=== PATIENT | male | born 1985 | race Caucasian/White ===

== ENCOUNTER 2021-12-26 11:04 | Emergency (ER) | payer OTHER ==
[~2021-12-26] VITALS: Ht 188 cm; Wt 90.7 kg
[2021-12-26 11:29] VITALS: BP 144/77
--- NOTE | 2021-12-26 11:35 | NUR ---
BIB SELF C/O FALLING YESTERDAY WHILE DOING A STUNT, AND NOTICING R ELBOW PAIN/SWELLING TODAY. AAOX4, BREATHING EVEN AND UNLABORED.
[2021-12-26] MEDS ORDERED: LIDOCAINE 1% INJ 50 ML MDV IJ ONE (12:11)
--- NOTE | 2021-12-26 12:50 | NUR ---
DRAINAGE DONE BY .
[2021-12-26] MEDS ORDERED: NAPR-1164 PO (13:01)
--- NOTE | 2021-12-26 13:17 | NUR ---
Patient discharged to home in stable condition. Written and verbal after care instructions given. Patient verbalizes understanding of instruction.
== END 2021-12-26 13:17 | disposition home or self-care (01) ==
LOC: ER 11:05
DX: S20.211A Contusion of right front wall of thorax, initial encounter (principal); M70.21 Olecranon bursitis, right elbow; W22.8XXA Striking against or struck by other objects, initial encounter; Y93.89 Activity, other specified; Y92.89 Other specified places as the place of occurrence of the external cause; Y99.8 Other external cause status
CPT/HCPCS: 20605; 71100; 73080; 99284; A6403; J3490

== ENCOUNTER 2022-01-30 08:17 | Emergency (ER) | payer OTHER ==
[~2022-01-30] VITALS: Ht 188 cm; Wt 88.5 kg
[~2022-01-30 08:17] MED LIST: NAPR-1164 PO
[2022-01-30 08:40] VITALS: BP 119/67
--- NOTE | 2022-01-30 08:42 | NUR ---
SEEN AND EXAMINED BY .
--- NOTE | 2022-01-30 08:49 | NUR ---
TO ER BED 4. BIBS L HEEL/FOOT PAIN S/P PERFORMING STUNT AT AROUND 11PM LAST NIGHT.
--- NOTE | 2022-01-30 08:58 | NUR ---
EMBEDDED SOFTWARE MANAGER AT BEDSIDE FOR XRAY.
--- NOTE | 2022-01-30 09:47 | NUR ---
Patient discharged to home in stable condition. Written and verbal after care instructions given. Patient verbalizes understanding of instruction.
== END 2022-01-30 09:48 | disposition home or self-care (01) ==
LOC: ER 08:20
DX: S90.32XA Contusion of left foot, initial encounter (principal); Z79.1 Long term (current) use of non-steroidal anti-inflammatories (NSAID); W22.8XXA Striking against or struck by other objects, initial encounter; Y93.89 Activity, other specified; Y92.89 Other specified places as the place of occurrence of the external cause; Y99.0 Civilian activity done for income or pay
CPT/HCPCS: 73630-TC; 73650-TC

== ENCOUNTER 2022-08-24 20:25 | Emergency (ER) | payer OTHER ==
[~2022-08-24] VITALS: Ht 188 cm; Wt 86.2 kg
--- NOTE | 2022-08-24 20:45 | NUR ---
BIB FAMILY FROM HOME C/O FEVER 101.F. S/P DEVIATED SEPTUM SURGERY 08/24/22 TOOK HYDROCODONE 7.5-325MG AT 1900. PT A/OX4. RESPIRATIONS EVEN AND NONLABORED. AMB WITH STEADY GAIT. SAFETY MEASURES IN PLACE. VSS
[2022-08-24] MEDS ORDERED: ACETAMINOPHEN 325 MG TABLET PO ONE (21:00)
[2022-08-24] MEDS ORDERED: ACETAMINOPHEN 325 MG TABLET ONE (21:00)
[2022-08-24] MEDS ORDERED: IBUPROFEN 600 MG TABLET PO ONE (21:00)
[2022-08-24] MEDS ORDERED: IBUPROFEN 600 MG TABLET ONE (21:01)
--- NOTE | 2022-08-24 21:26 | NUR ---
GINO MACHINIST GENERAL AT PT'S BEDSIDE
[2022-08-24] MEDS ORDERED: IV NS 0.9% 1,000 ML BAG IV ONE (21:30)
--- NOTE | 2022-08-24 21:36 | NUR ---
20G IV INIATED AT [facility]. IV FLUIDS STARTED PER ORDER.
--- NOTE | 2022-08-24 22:55 | NUR ---
Patient discharged to home in stable condition. Written and verbal after care instructions given. Patient verbalizes understanding of instruction.IV removed. Catheter intact and site benign. Pressure and 4x4 applied to site. No bleeding noted.
[2022-08-24 23:10] VITALS: BP 143/79
== END 2022-08-24 23:00 | disposition home or self-care (01) ==
LOC: ER 22:49
DX: R50.9 Fever, unspecified (principal); Z79.1 Long term (current) use of non-steroidal anti-inflammatories (NSAID)
CPT/HCPCS: 99283; 96360; J7030

== ENCOUNTER 2025-03-25 18:12 | Emergency (ER) | payer OTHER ==
[~2025-03-25] VITALS: Ht 188 cm; Wt 81.6 kg
[2025-03-25 18:14] VITALS: BP 126/78; TEMP 98.3
[2025-03-25] MEDS ORDERED: EMTR1TAB6 PO (18:35)
[2025-03-25] MEDS ORDERED: RALT400T PO (18:35)
[2025-03-25] MEDS: RALTEGRAVIR POTASSIUM 400 MG TABLET PO ONE (18:51)
[2025-03-25] MEDS: EMTRICITABINE/TENOFOVIR 1 TAB PO SCH (18:51)
[2025-03-25 18:55] VITALS: O2SAT 97
== END 2025-03-25 18:57 | disposition home or self-care (01) ==
LOC: ER 18:17
DX: Z77.21 Contact with and (suspected) exposure to potentially hazardous body fluids (principal); Z79.624 Long term (current) use of inhibitors of nucleotide synthesis; Z79.899 Other long term (current) drug therapy